=== PATIENT | female | born 1995 | race Caucasian/White ===

== ENCOUNTER 2021-04-26 08:25 | Emergency (ER) | payer OTHER, SELFPAY ==
[2021-04-26 08:34] VITALS: BP 143/92; PULSE 81; RESP 16; TEMP 36.3; O2SAT 100
--- NOTE | 2021-04-26 09:05 | ED.LOWEXIN ---
HPI - Extremity Injury (Lower) General Chief Complaint: Extremity Injury, Lower Stated Complaint: Right foot Pain Source: patient and RN notes reviewed Mode of arrival: ambulatory Limitations: no limitations History of Present Illness HPI Narrative: Patient states she woke up with right foot pain x2 days. She denies injury. States she has been standing for longer periods of time than normal on thin soled shoes. She treated herself with ice and Tylenol without relief. Denies open areas or bruising to area. Denies numbness or tingling in the foot or toes. Currently rates her pain 12/31. Related Data Home Medications Medication Instructions Recorded Confirmed beclomethasone dipropionate 80 2 spray INTRANASAL DAILY 06/15/20 04/26/21 mcg/actuation nasal HFA inhaler cetirizine [Zyrtec] 10 mg PO DAILY 04/26/21 04/26/21 Allergies Allergy/AdvReac Type Severity Reaction Status Date / Time Common Ragweed Allergy Unknown Unknown Uncoded 04/26/21 08:46 Molds and Smuts Allergy Unknown Unknown Uncoded 04/26/21 08:46 Review of Systems Review of Systems: CONSTITUTIONAL: Denies body aches, fever, chills, or sweats. EYES: Denies visual changes, redness, or discharge. ENT: Denies rhinorrhea, congestion, sore throat, or otalgia. CARDIOVASCULAR: Denies chest pain, palpitations, or edema. RESPIRATORY: Denies cough or dyspnea. GASTROINTESTINAL: Denies abdominal pain, nausea, vomiting, or diarrhea. GENITOURINARY: Denies dysuria or hematuria. SKIN: Denies rash, itching, or wounds. MUSCULOSKELETAL: Complains of right heel pain, denies injury or swelling. . NEUROLOGIC: Denies headache, numbness, tingling, or weakness. PSYCH: Denies depression or anxiety. [facility] Family History Family History Mother Hypertension Father Family history of diabetes mellitus in first degree relative Grandparent Family history of malignant neoplasm of uterus Diabetes mellitus Other Cerebrovascular accident Family history of coronary artery disease Social History Social History Smoking status: Never smoker Second hand tobacco smoke exposure: No Alcohol intake: never Substance use: never Substance use type: does not use Comments At time of signature, I have reviewed and agree with nursing past medical, surgical, social and family history unless otherwise noted. Please see nursing chart for further information. There is no relevant family history pertinent to the presenting complaint Exam Narrative: GENERAL: Well-appearing, well-nourished, and in no acute distress. HEAD: Normocephalic, atraumatic. EYES: EOMI. No redness or drainage. Conjunctivae normal. ENT: Mucous membranes pink and moist. Nares clear. No rhinorrhea. . NECK: Normal AROM. Supple. No lymphadenopathy. CHEST: No respiratory distress. EXTREMITIES: Tenderness over the right plantar fascia, No bruising, no open areas of skin ; capillary refill <2 secs. Normal range of motion. No edema. No erythema. SKIN: Warm, dry, no rash. Capillary refill normal. Normal skin turgor. NEURO: No focal deficits. Alert and oriented x3. Gait steady. PSYCH: Normal affect. No signs of depression or anxiety. Course Vital Signs Vital signs: Vital Signs Temperature 97.3 F L 04/26/21 08:34 Pulse Rate 81 04/26/21 08:34 Respiratory Rate 16 04/26/21 08:34 Blood Pressure 143/92 H 04/26/21 08:34 Pulse Oximetry 100 04/26/21 08:34 Temperature 97.3 F L 04/26/21 08:34 Pulse Rate 81 04/26/21 08:34 Respiratory Rate 16 04/26/21 08:34 Blood Pressure 143/92 H 04/26/21 08:34 Pulse Oximetry 100 04/26/21 08:34 Reviewed. Pt has been instructed to follow up with her PCP regarding her elevated blood pressure today. MDM - Extremity Injury (Lower) Differential Diagnosis Differential diagnosis: Likely ankle sprain and strain, puncture wound of foot and fra
== END 2021-04-26 09:24 | disposition home or self-care (01) ==
PROVIDERS: Emergency Provider Nurse Practitioner; PCP Family Medicine
DX: M72.2 Plantar fascial fibromatosis (principal)
CPT/HCPCS: 99212; G0463